=== PATIENT | male | born 1955 | race Caucasian/White ===

== ENCOUNTER 2019-06-28 08:07 | Inpatient (IN) ==
--- NOTE | 2019-05-28 11:00 | PAT Medication Instructions ---
Medication Instructions Date of Service May 28, 2019 Home Medications ascorbic acid (vitamin C) 500 mg PO QDL multivitamin 1 tab PO QAM omega-3 fatty acids-fish oil [Fish Oil] 1 cap PO QDL ranitidine HCl [Zantac] 150 mg PO BID STOP taking 2 weeks before surgery omega-3 fatty acids-fish oil [Fish Oil] 1 cap PO QDL DO NOT take the morning of surgery ascorbic acid (vitamin C) 500 mg PO QDL multivitamin 1 tab PO QAM Take morning of surgery With a small sip of water, OTHERWISE NOTHING TO EAT OR DRINK AFTER MIDNIGHT: ranitidine HCl [Zantac] 150 mg PO BID Take evening before surgery ranitidine HCl [Zantac] 150 mg PO BID Other Notes If you have any questions please call us at [phone] or [phone] or [phone] or [phone]
--- NOTE | 2019-05-28 11:04 | Anesthesiology Consultation ---
Date of Service May 28, 2019 Assessment & Plan (1) Encounter for pre-operative examination: Chart Review Chart Review: Acceptable Risk for Surgery and Patient seen in Pre Admission Testing Teaching & Discussion Instructed NPO after midnight before surgery, except medications with 15 cc of water. Medication instructions provided according to the PAT guidelines. History Surgery Operation Date: 06/28/19 10:40 Proposed Procedures p Right Anterior Total Hip Replacement - Carlos Zavaleta, Height/Weight Height: 5 ft 7 in Weight: 75.7 kg Allergies Allergy/AdvReac Type Severity Reaction Status Date / Time Penicillins Allergy Hives Verified 05/20/19 13:56 Sulfa (Sulfonamide Allergy Hives Verified 05/20/19 13:56 Antibiotics) doxycycline AdvReac gi upsets Verified 05/20/19 13:55 Medications Home Medications Medication Instructions Recorded Confirmed Last Taken ascorbic acid (vitamin C) [Vitamin 500 mg PO QDL 05/20/19 05/20/19 Unknown C] multivitamin 1 tab PO QAM 05/20/19 05/20/19 Unknown omega-3 fatty acids-fish oil [Fish 1 cap PO QDL 05/20/19 05/20/19 Unknown Oil] ranitidine HCl [Zantac] 150 mg PO BID 05/20/19 05/20/19 Unknown Past Medical History Medical History Back pain Acute back strain lumbar area 05/09, evaluated by urgent care, improved with prednisone. GERD (gastroesophageal reflux disease) Osteoarthritis Exercise / Class Metabolic Activity II 4-5 Yardwork/Stairs/Walk up hill (Denies CP or SOB with stairs, limited by hip pain) Past Family History Family History Mother Family history of diabetes mellitus Other FHx: heart disease Past Surgical History Surgical History History of open reduction and internal fixation (ORIF) procedure right femur - age 7 Hx of colonoscopy Past Anesthesia History No Hx of Anesthesia Complications and No Family Hx of Anesthesia Complications History of PONV No Hx of PONV and No Hx of Motion Sickness Social History Smoking Status: Never smoker Do You Dip or Chew Tobacco: No (QUIT YEARS AGO) Hx Alcohol Use: Yes Alcohol type: wine alcohol intake frequency: 0-2 drinks per day (1-2 per day) Hx Substance Use: No Review of Systems Pt denies any recent chest pain, shortness of breath, palpitations, cough, fever or URI. +mild nasal congestion currently, +hip pain, +low back pain, wearing brace currently Physical Exam Vital Signs BP: 138/80 (pt reports this is high for him, has white coat HTN) P: 85bpm SPO2: 98% RA T: 98.6 F R: 16 ENMT Mouth: no dental restorations, no chipped teeth and no loose teeth Thyromental Distance: < 3.5 Finger Breadths (3) Mallampati Class: II Neck normal visual inspection and + facial hair (very short thin mustache); neck extension not limited Respiratory normal respiratory effort Auscultation: lungs clear to auscultation bilaterally Cardiovascular Rate/Rhythm: regular rate and regular rhythm Heart Sounds: no murmur Vessels: no carotid bruit Extremities: no edema Testing Laboratory Results 05/28/19 11:34 05/28/19 11:34 PT 10.3 Seconds (9.0-12.0) 05/28/19 11:34 INR 1.0 (0.9-1.1) 05/28/19 11:34 APTT 26.2 Seconds (21.0-31.0) 05/28/19 11:34 Blood Type A Positive 05/28/19 11:34 Antibody Screen NEGATIVE 05/28/19 11:34 Electrocardiogram Date: 05/28/19 Findings: + NSR @ (73) Chest X-Ray Date: 05/28/19 IMPRESSION: 1. No acute process within the chest. 2. Possibly 8 mm nodular density at the left lung base. Recommend shallow oblique views for further evaluation. 3. These findings were called/faxed to the referring physician's office following dictation. Note sent to PCP re: abnormal CXR. Per PCP response, does not need to delay surgery. Stress Test Date: 04/19/18 Type: exercise Resting EF: 60-64% Stress echo is negative for inducible ischemia. No arrhythmias. Normal HR and BP response to exercise. Above average exercise tolerance. At rest, normal LV chamber size and wall thickness. Normal LV systolic function without regional wall motion abnormality. Normal diastolic function. No significant valvular pathology.
--- NOTE | 2019-05-28 13:01 | XRay Report ---
XR chest Pre-admission PA/Lat HISTORY: Preop. COMPARISON: None. FINDINGS: No pleural effusions. No pneumothorax. The heart is normal in size. The right lung is clear . An 8 mm nodular density left lung base. Otherwise, the left lung is clear. No focal lung consolidat ions to suggest pneumonia. No evidence for pulmonary edema. IMPRESSION: 1. No acute process within the chest. 2. Possibly 8 mm nodular density at the left lung base. Recommend shallow oblique views for further e valuation. 3. These findings were called/faxed to the referring physician's office following dictation. Electronically signed by: Josiah George M.D. 05/28/2019 1:00 PM
[2019-05-28 13:33] LABS: Basophils # (auto) 0.01 K/uL (0-0.2); Basophils % (auto) 0.2 %; Eosinophils # (auto) 0.03 K/uL (0-0.5); Eosinophils % (auto) 0.5 %; Hematocrit (blood only) 43.4 % (42-52); Hemoglobin 15.2 g/dL (14.0-18.0); Immature Granulocytes # (auto) 0.02 K/uL (0.00-0.02); Immature Granulocytes % (auto) 0.4 %; Lymphocytes # (auto) 1.55 K/uL (1.2-3.4); Lymphocytes % (auto) 28.3 %; Mean Corpuscular Volume 88.9 fL (80-100); Monocytes # (auto) 0.55 K/uL (0.11-0.59); Neutrophils # (auto) 3.32 K/uL (1.4-6.5); Neutrophils % (auto) 60.6 %; Platelet Count 240 K/uL (130-400); RDW Coefficient of Variation 13.4 % (11.5-14.5); RDW Standard Deviation 43.7 fL (36.4-46.3); Red Blood Count 4.88 M/uL (4.7-6.1); White Blood Count 5.48 K/uL (4.8-10.8)
[2019-05-28 13:45] LABS: BUN Creatinine Ratio 19.1 (10-20); Calcium 9.2 mg/dl (8.5-10.1); Creatinine Clr Calc Pharmacy 81.4 ml/min; Est GFR (African American) 106.7; Est GFR (Non-African American) 92.1; Potassium 3.7 mmol/L (3.5-5.1)
[2019-05-28 13:46] LABS: Partial Thromboplastin Time 26.2 Seconds (21.0-31.0); Prothrombin Time 10.3 Seconds (9.0-12.0)
--- NOTE | 2019-06-26 07:26 | History & Physical Report ---
Date of Service June 26, 2019 Assessment & Plan (1) Osteoarthritis of right hip: We will proceed with a right anterior total hip arthroplasty. Postoperatively he will be kept overnight in the hospital for postoperative medical management. Use aspirin for DVT prophylaxis. He plans to use [employer] upon discharge. Present on Admission?: Yes History of Present Illness Chief Complaint: Primary osteoarthritis of the right hip Primary Care Provider: Jose M Canales MD Fran is a pleasant 63-year-old male who is been dealing with chronic increasing right hip and groin pain. X-rays and clinical examination have been diagnostic for primary osteoarthritis of the right hip. After failing extensive conservative treatment, he has elected proceed with a right anterior total hip arthroplasty. Allergies Allergy/AdvReac Type Severity Reaction Status Date / Time Penicillins Allergy Hives Verified 05/20/19 13:56 Sulfa (Sulfonamide Allergy Hives Verified 05/20/19 13:56 Antibiotics) doxycycline AdvReac gi upsets Verified 05/20/19 13:55 Home Medications Home Medications Medication Instructions Recorded Confirmed Type ascorbic acid (vitamin C) [Vitamin 500 mg PO QDL 05/20/19 05/20/19 History C] multivitamin 1 tab PO QAM 05/20/19 05/20/19 History omega-3 fatty acids-fish oil [Fish 1 cap PO QDL 05/20/19 05/20/19 History Oil] ranitidine HCl [Zantac] 150 mg PO BID 05/20/19 05/20/19 History Past Med/Surg History Medical History Back pain Acute back strain lumbar area 05/09, evaluated by urgent care, improved with prednisone. GERD (gastroesophageal reflux disease) Osteoarthritis Surgical History History of open reduction and internal fixation (ORIF) procedure right femur - age 7 Hx of colonoscopy Family History Mother Family history of diabetes mellitus Other FHx: heart disease Social History Preferred Language: Indian Communication Ability: Effective Beliefs That Will Affect Care: None Current Living Situation: Spouse Feels Safe at Home: Yes Smoking Status: Never smoker Second Hand Exposure: No Hx Alcohol Use: Yes Alcohol type: wine Hx Substance Use: No Review of Systems All systems reviewed & are unremarkable except as noted in HPI & below Physical Exam Constitutional: WD/WN, vitals as above Eyes: PERRL, conjunctivae normal, anicteric sclerae ENMT: external ear and nose normal, oropharynx normal Neck: trachea midline, no thyromegaly Respiratory: normal respiratory effort Cardiovascular: RRR, no murmur, no edema Gastrointestinal (Abdomen): normal bowel sounds, soft, nontender, no hepatosplenomegaly Musculoskeletal: Physical examination of the right hip reveals decreased range of motion with flexion, internal and external rotation. There is significant groin pain with forced internal rotation of the hip his leg lengths are essentially equal. Psychiatric: A+Ox3, euthymic affect Results & Data Diagnostic Findings Radiographs of the right hip and pelvis demonstrate advanced osteoarthritis with joint space narrowing osteophyte formation and [id number] articulation.
[~2019-06-28 08:07] MED LIST: ACETAMINOPHEN 500 MG TAB PO SCH; BUPIVACAINE 0.5 % 5 MG/1 ML PF 10ML VIAL ONE; FAMOTIDINE 20 MG TAB PO SCH; GABAPENTIN 300 MG CAP PO SCH; LR 500ML BOLUS, THEN 15ML/HR IV SCH; LR 60ML/HR IV SCH; ROPIVACAINE 0.5% HCL/PF 150 MG, BUPIVACAINE 0.5% MPF 30 ML, EPINEPHrine 30MG/30ML (OR U... INSTIL SCH; TRANEXAMIC ACID 1,000 MG **IV Intra-op IV SCH; TRANEXAMIC ACID 1,000 MG **IV Pre-op IV SCH; VANCOMYCIN HCL 1,250 MG in SODIUM CHLORIDE 0.9% 250 ML IV SCH
[2019-06-28] MEDS ORDERED: MIDAZOLAM HCL 1 MG/ML 2ML VIAL ONE ×3 (08:25→11:39)
[2019-06-28] MEDS ORDERED: ONDANSETRON INJ 2 MG/ML 2 ML VIAL ONE (08:25)
[2019-06-28] MEDS ORDERED: LIDOCAINE HCL 2% 2 ML VIAL/AMP(20MG/ML) INFIL ONE (08:25)
[2019-06-28] MEDS ORDERED: KETAMINE HCL INJ 50 MG/ML 10 ML VIAL ONE (08:25)
[2019-06-28] MEDS ORDERED: fentaNYL citrate 100 MCG/2 ML VIAL ONE (08:25)
[2019-06-28] MEDS ORDERED: PROPOFOL IV EMULSION 10 MG/ML 20 ML VIAL IV ONE (08:25)
--- NOTE | 2019-06-28 08:49 | History & Physical Bridge Note ---
Date of Service June 28, 2019 History & Physical Bridge Note I have examined the patient, reviewed the History & Physical and in the interval since the performance of the History & Physical I have noted the following changes of clinical significance: no changes noted
[2019-06-28] MEDS ORDERED: PHENYLEPHRINE 100MCG/ML 5ML SYR IV PRN (08:54)
[2019-06-28] MEDS ORDERED: fentaNYL citrate 100 MCG/2 ML VIAL IV PRN (08:54)
[2019-06-28] MEDS ORDERED: ONDANSETRON INJ 2 MG/ML 2 ML VIAL IV PRN ×2 (08:54→13:43)
[2019-06-28] MEDS ORDERED: ATROPINE SULFATE 0.1 MG/ML 10ML SYR IV PRN (08:54)
[2019-06-28] MEDS ORDERED: MEPERIDINE HCL 25 MG/ML CARP IV PRN (08:54)
[2019-06-28] MEDS ORDERED: LABETALOL HCL IV 5 MG/ML 20ML IV PRN (08:54)
[2019-06-28] MEDS ORDERED: ePHEDrine sulfate 50 MG/ML AMP IV PRN (08:54)
[2019-06-28] MEDS ORDERED: ORTHO JOINT ANESTHETIC ONE (09:20)
[2019-06-28] MEDS ORDERED: ePHEDrine sulfate 50 MG/ML SYR ONE (10:48)
[2019-06-28] MEDS ORDERED: GLYCOPYRROLATE 0.2 MG/ML VIAL ONE (10:48)
[2019-06-28] MEDS ORDERED: PHENYLEPHRINE HCL 10 MG/ML VIAL ONE (10:49)
--- NOTE | 2019-06-28 11:52 | Operative Report ---
Post Operative Report Pre & Post Diagnosis Operation Date: 06/28/19 10:20 Pre-Op Diagnosis: RIGHT HIP DEGENERATIVE JOINT DISEASE Post-Op Diagnosis: RIGHT HIP DEGENERATIVE JOINT DISEASE Procedure Operation Date: 06/28/19 10:20 Actual Procedures p Right Anterior Total Hip Replacement(Right) - Carlos Zavaleta DO Surgeon Carlos Zavaleta DO Motion Picture Director Carlos Cardenas PAC Estimated Blood Loss 250 Findings Consistent with Post-Op Diagnosis Specimens Right femoral head Complications none Disposition Disposition: Recovery Room Indications Fran is a pleasant 63-year-old male who is been dealing with chronic increasing right hip and groin pain. X-rays and clinical examination have been diagnostic for primary osteoarthritis of the right hip. After failing conservative treatment, he elected to proceed with a right anterior total hip arthroplasty. Description of Procedure Implants used Biomet Taperloc total hip arthroplasty system with a size 16 high offset Taperloc stem, a 54 mm G7 cup with a 25mm screw, an E1 polyethylene liner, a 40 mm ceramic head with a 0 neck. Patient arrived at the hospital for the above procedure. They were seen in the preoperative holding area and the operative extremity was identified and signed. They were given a spinal anesthetic. They were given a preoperative antibiotic and TXA. They were taken back To the operating room and laid on the table in the supine position. The leg was brought out through a Puristst leg positioner. The hip was then prepped and draped in sterile fashion. A timeout was done and the patient in upper extremities properly identified. An anterior approach was used. Dissection was taken down through the fascia and the tensor muscle belly was retracted laterally and the rectus was retracted medially. The circumflex vessels were identified and ligated. The capsule was then incised and tagged for later repair. The femoral neck was then cut and the femoral head was removed. The acetabulum was exposed. Time was spent doing a complete circumferential labral release. Sequential reaming of the acetabulum up to a size 53 reamer was done. Final reamings were done under fluoroscopy to ensure appropriate version. A Biomet 54 mm G7 cup was then impacted into place. A single 25 mm screw was placed. The E1 polyethylene liner was then snapped into place. Surrounding soft tissues were then injected with 100 cc of an orthopedic pain control cocktail. The proximal femur was then exposed. Sequential broaching up to a size 16 broach was done. Off that broach a size 40 head with a 0 neck was trialed. The hip was reduced and fluoroscopic images showed anatomic alignment of the implants in acceptable length. The broach was removed. The final size 16 high offset Taperloc stem was then impacted into place. A ceramic 40 mm head with a 0 neck was then impacted into place in the hip was reduced. Final fluoroscopic images showed anatomic reduction of the hip. The capsule was then closed with #1 Vicryl suture. A dilute betadyne lavage was then done for 3 minutes. The joint was then irrigated with normal saline solution. The fascia was closed with #1 PDS suture. Skin was closed with 2-0 Vicryl, kendell, and a Therese VAC dressing. The patient was then transferred to a hospital bed and taken to the post anesthesia care unit in stable condition. They tolerated the procedure well. I attest to the content of the Intraoperative Record and any orders documented therein. Any exceptions are noted below.
--- NOTE | 2019-06-28 12:34 | Fluoroscopy Report ---
FL hip RT 1V CLINICAL HISTORY: Severe right hip arthritis. Right hip pain. Right hip arthroplasty. COMPARISON STUDY: 03/13/2019 FLUOROSCOPY TIME: 36 seconds. NUMBER OF FLUOROSCOPIC IMAGES: 2 FINDINGS: 2 intraoperative fluoroscopic spot images reveal postsurgical changes of a total right hip arthroplasty. There is no dislocation. IMPRESSION: Total right hip arthroplasty. Electronically signed by: Chaitanya Bonilla M.D. 06/28/2019 12:33 PM
--- NOTE | 2019-06-28 13:07 | XRay Report ---
XR hip 1V RT w pelvis CLINICAL HISTORY: Postop arthroplasty COMPARISON: None. DISCUSSION: There are postsurgical changes of a total right hip arthroplasty. The acetabular femoral components appear well seated. There is no dislocation. There are overlying skin kendell. There is ai r within the soft tissues consistent with recent surgery. IMPRESSION: Postsurgical changes of a total right hip arthroplasty. Electronically signed by: Chaitanya Bonilla M.D. 06/28/2019 1:05 PM
--- NOTE | 2019-06-28 13:19 | Anesthesiology Progress Note ---
Date of Service June 28, 2019 Anesthesia Post Procedure Vital Signs Vital Signs: Temp Pulse Pulse Resp BP Pulse Ox 06/28/19 13:06 36.9 C 83 17 94/62 L 98 06/28/19 12:53 74 17 104/62 96 06/28/19 12:45 90 12 98/61 L 98 06/28/19 12:35 91 H 13 96/69 L 98 06/28/19 12:27 36.6 C 100 H 16 102/69 97 06/28/19 08:59 36.8 C 84 20 124/87 98 Pain Intensity Right Hip: Pain Intensity: 2 Transfer of Care Handoff Completed per policy Notes Mental Status: alert / awake / arousable Patient Amnestic to Procedure: Yes Nausea / Vomiting: adequately controlled Pain: adequately controlled Airway Patency, RR, SpO2: stable & adequate BP & HR: stable & adequate Hydration State: stable & adequate Neuraxial Anesthesia: was administered and sensory block is resolving Anesthetic Complications: no major complications apparent and Pt Satisfied with anesthetic care
[2019-06-28] MEDS ORDERED: BISACODYL 10 MG SUPP PR PRN (13:43)
[2019-06-28] MEDS ORDERED: MAGNESIUM HYDROXIDE SUSP 30 ML UDC PO PRN (13:43)
[2019-06-28] MEDS ORDERED: NALOXONE HCL 0.4 MG/1 ML VIAL/CARP IV PRN (13:43)
[2019-06-28] MEDS ORDERED: METOCLOPRAMIDE HCL INJ 5 MG/ML 2 ML VIAL IV PRN (13:43)
[2019-06-28] MEDS ORDERED: VANCOMYCIN CONSULT ACTIVE PRN (13:43)
[2019-06-28] MEDS ORDERED: OXYCODONE HCL IR 5 MG TAB (IMMEDIATE RELEASE) PO PRN (13:43)
[2019-06-28] MEDS ORDERED: HYDROmorphone INJ 0.5 MG/0.5 ML SYR IV PRN (13:43)
[2019-06-28] MEDS: SODIUM CHLORIDE 0.9% 1000ML 1,000 ML IV SCH ×2 (15:41→22:56)
[2019-06-28] MEDS: KETOROLAC 30 MG/ML VIAL IV SCH ×2 (15:42→22:10)
[2019-06-28] MEDS: ACETAMINOPHEN 500 MG TAB PO SCH (17:28)
[2019-06-28] MEDS ORDERED: Nursing to Pharmacy Communication ONE (17:31)
[2019-06-28] MEDS: ASPIRIN 81 MG ECTAB PO SCH (20:22)
[2019-06-28] MEDS: DOCUSATE SODIUM 100 MG CAP PO SCH (20:22)
[2019-06-28] MEDS ORDERED: VANCOMYCIN HCL 1,250 MG in SODIUM CHLORIDE 0.9% 250 ML IV SCH (21:00)
[2019-06-28] MEDS ORDERED: SENNA 8.6 MG TAB PO SCH (21:00)
[2019-06-29] MEDS: ACETAMINOPHEN 500 MG TAB PO SCH ×2 (01:57→10:41)
[2019-06-29] MEDS: KETOROLAC 30 MG/ML VIAL IV SCH ×2 (04:32→10:41)
[2019-06-29 06:28] LABS: Basophils # (auto) 0.01 K/uL (0-0.2); Basophils % (auto) 0.1 %; Eosinophils # (auto) 0.01 K/uL (0-0.5); Eosinophils % (auto) 0.1 %; Hematocrit (blood only) 36.6 % (42-52); Hemoglobin 12.5 g/dL (14.0-18.0); Immature Granulocytes # (auto) 0.04 K/uL (0.00-0.02); Immature Granulocytes % (auto) 0.3 %; Lymphocytes # (auto) 1.61 K/uL (1.2-3.4); Lymphocytes % (auto) 13.4 %; Mean Corpuscular Hgb Conc 34.2 g/dL (32-36); Mean Corpuscular Volume 91.5 fL (80-100); Mean Platelet Volume 9.7 fL (7.4-10.4); Monocytes # (auto) 1.35 K/uL (0.11-0.59); Monocytes % (auto) 11.2 %; Neutrophils # (auto) 9.03 K/uL (1.4-6.5); Neutrophils % (auto) 74.9 %; Platelet Count 222 K/uL (130-400); RDW Coefficient of Variation 13.6 % (11.5-14.5); White Blood Count 12.05 K/uL (4.8-10.8)
[2019-06-29 07:04] LABS: BUN Creatinine Ratio 12.7 (10-20); Calcium 8.4 mg/dl (8.5-10.1); Creatinine Clr Calc Pharmacy 85.2 ml/min; Est GFR (African American) 108.8; Est GFR (Non-African American) 93.8; Potassium 3.7 mmol/L (3.5-5.1)
[2019-06-29] MEDS: ASPIRIN 81 MG ECTAB PO SCH (08:36)
[2019-06-29] MEDS: DOCUSATE SODIUM 100 MG CAP PO SCH (08:36)
[2019-06-29] MEDS ORDERED: MULTIVITAMIN TAB PO SCH (09:00)
--- NOTE | 2019-06-29 09:16 | Orthopedic Progress Note ---
Date of Service June 29, 2019 Assessment & Plan (1) Osteoarthritis of right hip: Overall he is doing very well. Is not having too much pain in the right hip. He is happy with his progress. He will be seen by physical therapy today for ambulation and range of motion exercises. He can be discharged home later this morning with [facility]. He will follow-up with orthopedics in 2 weeks. Present on Admission?: Yes Lissy Peters was seen and examined at bedside this morning. Overall is doing very well. Is not having much pain in the right hip. He is been up and ambulating to the bathroom. He has no complaints. Physical Exam Musculoskeletal: On physical examination of the right hip, the Therese VAC dressing is to suction. He has active dorsiflexion and plantarflexion of the right ankle. Sensations intact. Results & Data Vital Signs (Past 12 Hours) Vital Signs Temp Pulse Resp BP Pulse Ox 06/29/19 07:00 36.8 C 68 16 118/78 96 06/29/19 03:00 36.6 C 64 16 114/69 97 06/28/19 23:45 36.6 C 84 16 118/65 96 Laboratory Results H & H 05/28/19 05/28/19 05/28/19 Range/Units 11:34 11:34 11:34 WBC 5.48 (4.8-10.8) K/uL RBC 4.88 (4.7-6.1) M/uL Hgb 15.2 (14.0-18.0) g/dL Hct 43.4 (42-52) % MCV 88.9 (80-100) fL MCH 31.1 (25-34) pg MCHC 35.0 (32-36) g/dL RDW Std Deviation 43.7 (36.4-46.3) fL RDW Coeff of Deidre 13.4 (11.5-14.5) % Plt Count 240 (130-400) K/uL MPV 10.0 (7.4-10.4) fL Immature Gran % (Auto) 0.4 % Neut % (Auto) 60.6 % Lymph % (Auto) 28.3 % Cherry % (Auto) 10.0 % Eos % (Auto) 0.5 % Baso % (Auto) 0.2 % Immature Gran # (Auto) 0.02 (0.00-0.02) K/uL Neut # (Auto) 3.32 (1.4-6.5) K/uL Lymph # (Auto) 1.55 (1.2-3.4) K/uL Cherry # (Auto) 0.55 (0.11-0.59) K/uL Eos # (Auto) 0.03 (0-0.5) K/uL Baso # (Auto) 0.01 (0-0.2) K/uL PT 10.3 (9.0-12.0) Seconds INR 1.0 (0.9-1.1) APTT 26.2 (21.0-31.0) Seconds PTT Ratio 1.0 Sodium 138 (136-145) mmol/L Potassium 3.7 (3.5-5.1) mmol/L Chloride 104 (98-107) mmol/L Carbon Dioxide 26 (21-32) mmol/L Anion Gap 8.0 (3-11) BUN 17 (7-18) mg/dl Creatinine 0.88 (0.6-1.4) mg/dl Est Cr Clr Drug Dosing 81.4 ml/min Est GFR ( Amer) 106.7 Est GFR (Non-Af Amer) 92.1 BUN/Creatinine Ratio 19.1 (10-20) Glucose 104 H (70-99) mg/dl Calcium 9.2 (8.5-10.1) mg/dl Blood Type Antibody Screen 05/28/19 06/29/19 06/29/19 Range/Units 11:34 05:14 05:14 WBC 12.05 H (4.8-10.8) K/uL RBC 4.00 L (4.7-6.1) M/uL Hgb 12.5 L (14.0-18.0) g/dL Hct 36.6 L (42-52) % MCV 91.5 (80-100) fL MCH 31.3 (25-34) pg MCHC 34.2 (32-36) g/dL RDW Std Deviation 45.0 (36.4-46.3) fL RDW Coeff of Deidre 13.6 (11.5-14.5) % Plt Count 222 (130-400) K/uL MPV 9.7 (7.4-10.4) fL Immature Gran % (Auto) 0.3 % Neut % (Auto) 74.9 % Lymph % (Auto) 13.4 % Cherry % (Auto) 11.2 % Eos % (Auto) 0.1 % Baso % (Auto) 0.1 % Immature Gran # (Auto) 0.04 H (0.00-0.02) K/uL Neut # (Auto) 9.03 H (1.4-6.5) K/uL Lymph # (Auto) 1.61 (1.2-3.4) K/uL Cherry # (Auto) 1.35 H (0.11-0.59) K/uL Eos # (Auto) 0.01 (0-0.5) K/uL Baso # (Auto) 0.01 (0-0.2) K/uL PT (9.0-12.0) Seconds INR (0.9-1.1) APTT (21.0-31.0) Seconds PTT Ratio Sodium 139 (136-145) mmol/L Potassium 3.7 (3.5-5.1) mmol/L Chloride 105 (98-107) mmol/L Carbon Dioxide 27 (21-32) mmol/L Anion Gap 7.0 (3-11) BUN 11 (7-18) mg/dl Creatinine 0.84 (0.6-1.4) mg/dl Est Cr Clr Drug Dosing 85.2 ml/min Est GFR ( Amer) 108.8 Est GFR (Non-Af Amer) 93.8 BUN/Creatinine Ratio 12.7 (10-20) Glucose 109 H (70-99) mg/dl Calcium 8.4 L (8.5-10.1) mg/dl Blood Type A Positive Antibody Screen NEGATIVE Coagulation 05/28/19 Range/Units 11:34 INR 1.0 (0.9-1.1) Diagnostic Findings Postoperative x-rays of the right hip show the prosthesis to be in anatomic alignment without any evidence of fracture, dislocation, or loosening. PG Care Time/CCT Total # of Minutes Spent Total Time Spent with Patient: Total time spent is greater than 50% in coordination of care (as documented) at patient's floor/unit and/or counseling patient:
--- NOTE | 2019-06-29 09:17 | Discharge Summary ---
Date of Service June 29, 2019 Admission HPI Per Admitting Provider Fran is a pleasant 63-year-old male who is been dealing with chronic increasing right hip and groin pain. X-rays and clinical examination have been diagnostic for primary osteoarthritis of the right hip. After failing extensive conservative treatment, he has elected proceed with a right anterior total hip arthroplasty. Specialty Data Orthopedic H & H 05/28/19 06/29/19 Range/Units 11:34 05:14 Hgb 15.2 12.5 L (14.0-18.0) g/dL Hct 43.4 36.6 L (42-52) % Coagulation 05/28/19 Range/Units 11:34 INR 1.0 (0.9-1.1) Discharge Data Consultations 06/29/19 08:00 Consult Case Management - Discharge Planning Routine Procedures Performed Operation Date: 06/28/19 10:20 Actual Procedures p Right Anterior Total Hip Replacement(Right) - Carlos Zavaleta DO Hospital Course (1) Osteoarthritis of right hip: On June 28, 2019 Dino arrived at [facility] and underwent a right anterior total hip arthroplasty without complication. He had a spinal anesthetic. Postoperatively he was started on aspirin for DVT prophylaxis and discharged to general orthopedic floors. His hospital course was uneventful. On postop day #1 his H&H was stable and his pain was well controlled. He was able to ambulate well with physical therapy. He was then discharged home with [facility]. He will follow-up with orthopedics in 2 weeks. Discharge Instructions Home Medications Medication Instructions Recorded Confirmed ascorbic acid (vitamin C) [Vitamin 500 mg PO QDL 05/20/19 06/28/19 C] multivitamin 1 tab PO QAM 05/20/19 06/28/19 omega-3 fatty acids-fish oil [Fish 1 cap PO QDL 05/20/19 06/28/19 Oil] ranitidine HCl [Zantac] 150 mg PO BID 05/20/19 06/28/19 Previous Rx's Medication Instructions Recorded aspirin [Ecotrin Low Strength] 81 mg PO BID #84 tab 06/29/19 tramadol 50 mg PO Q6H PRN #30 tab 06/29/19
== END 2019-06-29 11:30 | disposition home health service (06) | DRG 470 ==
LOC: ASU 08:07 → 3E 12:28